=== PATIENT | female | born 1975 | race African-American/Black ===

== ENCOUNTER 2020-02-16 13:53 | Outpatient (CLI) | payer OTHER, SELFPAY ==
--- NOTE | 2020-02-21 21:44 | P.PCNPFT_ITS ---
PFT Interpretation PFT Interpretation: DOS: 02/16/2020 REQUESTING: Kemar Kitchen REASON FOR TESTING: Cough PULMONARY FUNCTION TESTS Results are reproducible. Spirometry: FEV1 96%, FVC 99%, FEV1% is 76%. All values are normal. The FEF25- 75% is 76%. After bronchodilator, there is a non-statistically significant increase in small airways flows. Lung volumes: TLC 96%, normal. RV is 85%, normal. Airway resistance is 192%, increased. Diffusion: DLCO is 88%< normal. Flow volume loop: Normal. IMPRESSION: Normal spirometry, lung volumes, and diffusion. Minimal decrease in small airways flows. Consider methacholine challenge if indicated to rule out asthma. Mamta Sweeney MD
== END 2020-02-16 13:54 | disposition home or self-care (01) ==
PROVIDERS: Visit Provider Internal Medicine Critical Care Medicine
DX: R05 Cough (principal)
CPT/HCPCS: 94060; 94726; 94729

== ENCOUNTER 2020-04-10 08:36 | Outpatient (CLI) | payer OTHER, SELFPAY ==
[2020-04-10] MEDS: SODIUM CHLORIDE 0.9% INJ 10 ML VIAL IV PUSH (10:23)
--- NOTE | 2020-04-10 11:51 | WPDPFTINT ---
PFT Interpretation PFT Interpretation: Methacholine Challenge: FEV1 started at 2.77 liters or 97% pre challenge and went as tlow 2.36 liters and 82% but this does. This is a negative Methacholine Challenge Test and rules out the possibility of Asthma
== END 2020-04-10 08:37 | disposition home or self-care (01) ==
PROVIDERS: Visit Provider Internal Medicine Critical Care Medicine
DX: R05 Cough (principal)
CPT/HCPCS: 94070; J7674